=== PATIENT | male | born 1965 | race Caucasian/White ===

== ENCOUNTER 2018-09-25 14:50 | Emergency (ER) | payer OTHER ==
[~2018-09-25] VITALS: Ht 170.2 cm; Wt 86.6 kg
[~2018-09-25 14:50] MED LIST: ASPIRIN325 PO; CHLORDIAZEPOXID25 M1 PO; LISINOPRIL20 MG PO
[2018-09-25 17:45] VITALS: BP 142/89
== END 2018-09-25 17:45 | disposition home or self-care (01) ==
LOC: ER 14:50
DX: F10.129 Alcohol abuse with intoxication, unspecified (principal); I10 Essential (primary) hypertension; Z87.891 Personal history of nicotine dependence